=== PATIENT | female | born 1930 | race Caucasian/White ===

== ENCOUNTER 2017-09-19 20:13 | Inpatient (IN) | payer MEDICARE ==
--- NOTE | 2017-09-19 20:15 | EDM.PDOC ---
<Tod Garza - Last Filed: 09/19/17 20:15> ED HPI GENERAL MEDICAL PROBLEM - General Chief Complaint: Neuro Symptoms/Deficits Stated Complaint: [facility] Time Seen by Provider: 09/19/17 20:15 - Related Data Allergies Allergy/AdvReac Type Severity Reaction Status Date / Time No Known Allergies Allergy Verified 09/19/17 20:18 Home Meds: Home Meds Albuterol/Ipratropium [DuoNeb 3.0-0.5 MG/3 ML] 3 ml IH ASDIRECTED 09/19/17 [ History] Budesonide [Pulmicort] 0.5 mg IH BID PRN 09/19/17 [History] Famotidine [Heartburn Relief] 20 mg PO ASDIRECTED 09/19/17 [History] Course - Vital Signs Last Recorded V/S: Last Vital Signs Temp 96.6 F 09/19/17 20:14 Pulse 65 09/19/17 20:14 Resp 18 09/19/17 20:14 BP 162/89 H 09/19/17 20:14 Pulse Ox 92 L 09/19/17 20:14 - Orders/Labs/Meds Orders: Active Orders 24 hr Category Date Time Status EKG 12 Lead [EKG Documentation Completion] [RC] STAT Care 09/19/17 20:19 Active Peripheral IV Care [RC] . DIRECTED Care 09/19/17 20:20 Active Chest 1V Frontal [CR] Stat Exams 09/19/17 20:19 Taken Head wo Cont [CT] Stat Exams 09/19/17 20:35 Taken Sodium Chloride 0.9% [Saline Flush] Med 09/19/17 20:19 Active 10 ml FLUSH ASDIRECTED PRN Peripheral IV Insertion Adult [OM.PC] Stat Oth 09/19/17 20:19 Ordered Medication Orders Sodium Chloride (Saline Flush) 10 ml FLUSH ASDIRECTED PRN PRN Reason: Keep Vein Open Labs: Laboratory Tests 09/19/17 09/19/17 09/19/17 Range/Units 20:30 20:30 20:30 WBC 6.43 (3.98-10.04) K/mm3 RBC 4.39 (3.98-5.22) M/mm3 Hgb 13.0 (11.2-15.7) gm/L Hct 39.8 (34.1-44.9) % MCV 90.7 (79.4-94.8) fl MCH 29.6 (25.6-32.2) pg MCHC 32.7 (32.2-35.5) g/dl RDW Std Deviation 44.6 (36.4-46.3) fL Plt Count 196 (182-369) K/mm3 MPV 9.4 (9.4-12.3) fl Neut % (Auto) 47.3 (34.0-71.1) % Lymph % (Auto) 35.5 (19.3-51.7) % [place] % (Auto) 10.9 (4.7-12.5) % Eos % (Auto) 5.6 (0.7-5.8) Baso % (Auto) 0.5 (0.1-1.2) % Neut # (Auto) 3.05 (1.56-6.13) K/mm3 Lymph # (Auto) 2.28 (1.18-3.74) K/mm3 [place] # (Auto) 0.70 H (0.24-0.36) K/mm3 Eos # (Auto) 0.36 (0.04-0.36) K/mm3 Baso # (Auto) 0.03 (0.01-0.08) K/mm3 Sodium 143 (136-145) mEq/L Potassium 3.8 (3.5-5.1) mEq/L Chloride 107 (98-107) mEq/L Carbon Dioxide 28 (21-32) mEq/L Anion Gap 11.8 (5-15) BUN 24 H (7-18) mg/dL Creatinine 0.8 (0.55-1.02) mg/dL Est Cr Clr Drug Dosing 44.63 mL/min Estimated GFR (MDRD) > 60 (>60) mL/min BUN/Creatinine Ratio 30.0 H (14-18) Glucose 117 H (83-115) mg/dL Calcium 9.2 (8.5-10.1) mg/dL Total Bilirubin 0.4 (0.2-1.0) mg/dL AST 25 (15-37) U/L ALT 22 (14-59) U/L Alkaline Phosphatase 68 (46-116) U/L C-Reactive Protein < 0.2 (<1.0) mg/dL Total Protein 6.9 (6.4-8.2) g/dl Albumin 4.0 (3.4-5.0) g/dl Globulin 2.9 gm/dL Albumin/Globulin Ratio 1.4 (1-2) Urine Color (Yellow) Urine Appearance (Clear) Urine pH (5.0-8.0) Ur Specific [place] (1.005-1.030) Urine Protein (Negative) Urine Glucose (UA) (Negative) Urine Ketones (Negative) Urine Occult Blood (Negative) Urine Nitrite (Negative) Urine Bilirubin (Negative) Urine Urobilinogen (0.2-1.0) Ur Leukocyte Esterase (Negative) Urine RBC (0-5) /hpf Urine WBC (0-5) /hpf Ur Epithelial Cells (0-5) /hpf Urine Bacteria (FEW) /hpf Urine Mucus (FEW) /hpf 09/19/17 Range/Units 22:10 WBC (3.98-10.04) K/mm3 RBC (3.98-5.22) M/mm3 Hgb (11.2-15.7) gm/L Hct (34.1-44.9) % MCV (79.4-94.8) fl MCH (25.6-32.2) pg MCHC (32.2-35.5) g/dl RDW Std Deviation (36.4-46.3) fL Plt Count (182-369) K/mm3 MPV (9.4-12.3) fl Neut % (Auto) (34.0-71.1) % Lymph % (Auto) (19.3-51.7) % [place] % (Auto) (4.7-12.5) % Eos % (Auto) (0.7-5.8) Baso % (Auto) (0.1-1.2) % Neut # (Auto) (1.56-6.13) K/mm3 Lymph # (Auto) (1.18-3.74) K/mm3 [place] # (Auto) (0.24-0.36) K/mm3 Eos # (Auto) (0.04-0.36) K/mm3 Baso # (Auto) (0.01-0.08) K/mm3 Sodium (136-145) mEq/L Potassium (3.5-5.1) mEq/L Chloride (98-107) mEq/L Carbon Dioxide (21-32) mEq/L Anion Gap (5-15) BUN (7-18) mg/dL Creatinine (0.55-1.02) mg/dL Est Cr Clr Drug Dosing mL/min Estimated GFR (MDRD) (>60) mL/min BUN/Creatinine Ratio (14-18) Glucose (83-115) mg/dL Calcium (8.5-10.1) mg/dL Total Bilirubin (0.2-1.0) mg/dL AST (15-37) U/L ALT (14-59) U/L Alkaline Phosphatase (46-116) U/L C-Reactive Protein (<1.0) mg/dL Total Protein (6.4-8.2) g/dl Albumin (3.4-5.0) g/dl Globulin gm/dL Albumin/Globulin Ratio (1-2) Urine Color Yellow (Yellow) Urine Appearance Clear (Clear) Urine pH 6.0 (5.0-8.0) Ur Specific [place] 1.015 (1.005-1.030) Urine Protein Negative (Negative) Urine Glucose (UA) Negative (Negative) Urine Ketones Negative (Negative) Urine Occult Blood Negative (Negative) Urine Nitrite Negative (Negative) Urine Bilirubin Negative (Negative) Urine Urobilinogen 0.2 (0.2-1.0) Ur Leukocyte Esterase Negative (Negative) Urine RBC 0-5 (0-5) /hpf Urine WBC 0-5 (0-5) /hpf Ur Epithelial Cells 0-5 (0-5) /hpf Urine Bacteria Rare (FEW) /hpf Urine Mucus Not seen (FEW) /hpf Meds: Medications Generic Name Dose Route Start Last Admin Trade Name Freq PRN Reason Stop Dose Admin Sodium Chloride 10 ml 09/19/17 20:19 Saline Flush FLUSH ASDIRECTED PRN Keep Vein Open Discontinued Medications Generic Name Dose Route Start Last Admin Trade Name Freq PRN Reason Stop Dose Admin Sodium Chloride 500 mls @ 999 mls/hr 09/19/17 20:21 09/19/17 20:34 Normal Saline IV 09/19/17 20:51 999 mls/hr .BOLUS ONE Administration Departure - Departure Disposition: Refer to Observation Clinical Impression: Paranoia, Hallucinations Dementia Qualifiers: Dementia type: Alzheimer's disease Alzheimer's disease onset: unspecified onset Dementia behavioral disturbance: with behavioral disturbance Qualified Code(s): G30.9 - Alzheimer's disease, unspecified; F02.81 - Dementia in other diseases classified elsewhere with behavioral disturbance; F02.81 - Dementia in other diseases classified elsewhere with behavioral disturbance; F02.81 - Dementia in other diseases classified elsewhere with behavioral disturbance - Discharge Information Referrals: PCP,None [Primary Care Provider] - Forms: ED Department Discharge - My Orders Last 24 Hours: My Active Orders 09/19/17 20:19 EKG 12 Lead [EKG Documentation Completion] [RC] STAT Chest 1V Frontal [CR] Stat Sodium Chloride 0.9% [Saline Flush] 10 ml FLUSH ASDIRECTED PRN Peripheral IV Insertion Adult [OM.PC] Stat 09/19/17 20:20 Peripheral IV Care [RC] . DIRECTED 09/19/17 20:35 Head wo Cont [CT] Stat - Assessment/Plan Last 24 Hours: My Active Orders 09/19/17 20:19 EKG 12 Lead [EKG Documentation Completion] [RC] STAT Chest 1V Frontal [CR] Stat Sodium Chloride 0.9% [Saline Flush] 10 ml FLUSH ASDIRECTED PRN Peripheral IV Insertion Adult [OM.PC] Stat 09/19/17 20:20 Peripheral IV Care [RC] . DIRECTED 09/19/17 20:35 Head wo Cont [CT] Stat <Mohit Romo - Last Filed: 09/19/17 23:26> ED HPI GENERAL MEDICAL PROBLEM - General Source of Information: Reports: Patient, RN Notes Reviewed - History of Present Illness INITIAL COMMENTS - FREE TEXT/NARRATIVE: 87 year old female brought in by ambulance for evaluation of confusion, possible hallucinations. She lives alone, apparently called the police earlier this evening because she thought her nephew had stolen her car keys. The police arrived to find her confused, notes "all over her apartment or home warning her nephew not to take her car keys" Police did not know if she was safe to be home alone so called EMS to have her brought here to the ED. They stated that she reported "someone in her apartment earlier today", apparently hallucinating. On arrival to ED patient is in NAD, mildly confused. No chest pain or difficulty breathing, no other complaints other than not wanting to be here. ED ROS GENERAL - Review of Systems Review Of Systems: See Below (Pt is moderately confused, may or may not remember prior sx) Constitutional: Denies: Fever HEENT: Denies: Throat Pain Respiratory: Denies: Shortness of Breath, Cough Cardiovascular: Denies: Chest Pain GI/Abdominal: Denies: Abdominal Pain, Diarrhea, Vomiting Musculoskeletal: Reports: No Symptoms Skin: Reports: No Symptoms Neurological: Denies: Headache, Trouble Speaking, Difficulty Walking, Weakness ED EXAM, GENERAL - Physical Exam Exam: See Below General Appearance: Alert, No Apparent Distress Eye Exam: Bilateral Eye: PERRL Nose: Normal Inspection Throat/Mouth: Normal Inspection Head: Atraumatic. No: Facial Swelling Neck: Supple, Full Range of Motion Respiratory/Chest: No Respiratory Distress, Lungs Clear, Normal Breath Sounds. No: Rhonchi, Wheezing Cardiovascular: Regular Rate, Rhythm GI/Abdominal: Soft, Non-Tender Back Exam: Other (no bruising or swelling). No: Paraspinal Tenderness, Vertebral Tenderness Extremities: No: Pedal Edema, Leg Pain Neurological: Alert, Confused (mild to moderately confused, knows her name, where she is at, does not know the date and cannot say what town she lives in) Skin Exam: Warm, Dry, Normal Color Course - Re-Assessments/Exams Free Text/Narrative Re-Assessment/Exam: 09/19/17 23:17 Labs have all come back relatively normal. Head CT no acute findings. CXR normal. She is pleasantly confused, cooperative here in the ED. Not felt safe to go home. I did visit with her nephew who has POA. He states that she had dementia when she moved to [facility] 1 yr ago. Placed at [facility], [facility]. Her meals are provided. She has a senior employee services manager that checks on her at least once daily. However she has been getting more confused and paranoid for some time, accusing people of stealing and especially her nephew and others of stealing her money, than calling the police tonight about nephew stealing her car keys. He has already contacted adult protective services, and Alicia Lynch at [facility] to try help him evaluate need for higher level of care. She has refused medical eval. He strongly feels that she should be admitted, evaluated for higher level of care. Departure - Departure Time of Disposition: 23:23 Condition: Fair ED Communication - Discussed Case With (1) Discussed Case With (1): Admitting Provider (Dr Thomas, decision to admit at about 2300.)
[2017-09-19] MEDS ORDERED: Sodium Chloride 0.9% 10 ML Syringe FLUSH PRN (20:19)
[2017-09-19] MEDS ORDERED: Sodium Chloride 0.9% 500 ML IV ONE (20:21)
--- NOTE | 2017-09-20 00:19 | PCM.HP ---
H&P History of Present Illness - General Date of Service: 09/20/17 Admit Problem/Dx: Unable to Care Herself Source of Information: Patient, Old Records, Provider, RN Notes Reviewed History Limitations: Reports: Altered Mental Status - History of Present Illness Initial Comments - Free Text/Narative: This is an 87 yo elderly white female with past medical hx/o COPD, GERD, Gait Instability who was brought in by EMS for evaluation of confusion and possible new onset of dementia. Patient is significantly confused not able to provide pertinent medical information. She could not tell me why she is here in the hospital. However per secondary sources, patient called the police to report a stolen car barnes by her nephew. When the local police arrived she was found in front of her house holding onto a shovel, severely confused, and sometimes not able to complete a sentence. The officer spoke to the nephew and was told that he has not visited her today. Additionally, there were reports of several notes all over her house with the words "The thieves" written in it. Patient lives alone and ambulates with a wheel walker. Local police felt she would be not safe to be alone by herself and therefore she was brought into the emergency department by EMS for further evaluation. Her initial workup in emergency department shows a fairly unremarkable CBC, Chemistry and UA. Her head CT scan and chest x-ray both show no acute abnormal findings. Patient is being admitted for acute confusion and possible new onset of dementia with behavioral disturbance/paranoia. She is CPR only. back pain Pain Score (Numeric/FACES): 5 - Related Data Allergies/Adverse Reactions: Allergies Allergy/AdvReac Type Severity Reaction Status Date / Time No Known Allergies Allergy Verified 09/19/17 20:18 Home Medications: Home Meds Albuterol/Ipratropium [DuoNeb 3.0-0.5 MG/3 ML] 3 ml IH ASDIRECTED 09/19/17 [ History] Budesonide [Pulmicort] 0.5 mg IH BID PRN 09/19/17 [History] Famotidine [Heartburn Relief] 20 mg PO DAILY 09/19/17 [History] Levothyroxine [Synthroid] 50 mcg PO ACBREAKFAST 09/20/17 [History] Lisinopril [Lisinopril] 2.5 mg PO DAILY 09/20/17 [History] Montelukast [Singulair] 10 mg PO DAILY 09/20/17 [History] Past Medical History HEENT History: Reports: Hard of Hearing, Impaired Vision Other Respiratory History: patient has duoneb and pulmacort in her apartment Social & Family History - Family History Family Medical History: Noncontributory - Tobacco Use Smoking Status *Q: Former Smoker Used Tobacco, but Quit: No - Caffeine Use Caffeine Use: Reports: Coffee - Recreational Drug Use Recreational Drug Use: No H&P Review of Systems - Review of Systems: Review Of Systems: See Below General: Denies: Fever, Chills, Malaise, Weakness, Fatigue HEENT: Reports: No Symptoms Pulmonary: Denies: Shortness of Breath Cardiovascular: Denies: Chest Pain, Palpitations, Dyspnea on Exertion, Edema, Lightheadedness Gastrointestinal: Denies: Abdominal Pain, Nausea, Vomiting Genitourinary: Reports: No Symptoms Musculoskeletal: Reports: No Symptoms Skin: Denies: Cyanosis, Pallor, Diaphoresis, Rash Psychiatric: Reports: Confusion, Other (Paranoia). Denies: Depression, Anxiety , Agitation, Hallucinations, Suicidal Ideation Neurological: Reports: Difficulty Walking. Denies: Dizziness, Weakness, Gait Disturbance Hematologic/Lymphatic: Reports: No Symptoms Immunologic: Reports: No Symptoms Exam - Exam Exam: See Below - Vital Signs Vital Signs: Last Vital Signs Temp 35.9 C 09/19/17 20:14 Pulse 65 09/19/17 20:14 Resp 18 09/19/17 20:14 BP 162/89 H 09/19/17 20:14 Pulse Ox 92 L 09/19/17 20:14 Weight: 81.647 kg - Exam General: Alert, Oriented (to place only), Cooperative. No: Mild Distress HEENT: Conjunctiva Clear, Mucosa Moist & [place], Nares Patent, Normal Nasal Septum , PERRLA. No: Hearing Intact Neck: Supple, Trachea Midline Lungs: Normal Respiratory Effort, Wheezing Cardiovascular: Regular Rate, Regular Rhythm GI/Abdominal Exam: Normal Bowel Sounds, Soft, Non-Tender, No Organomegaly, No Distention, No Abnormal Bruit (Female) Exam: Deferred Rectal (Female) Exam: Deferred Back Exam: Normal Inspection, Decreased Range of Motion Extremities: Normal Inspection, Normal Range of Motion, Non-Tender, No Pedal Edema, Normal Capillary Refill, Other (ambulated with a wheel walker) Skin: Warm, Dry, Intact Neuro Extensive - Mental Status: Normal Mood/Affect, Disorientation to Person, Disorientation to Time, Nl Response to Commands. No: Memory Intact Neuro Extensive - Motor, Sensory, Reflexes: CN II-XII Intact (limited due to lack of cooperation), Abnormal Gait Psychiatric: Alert, Normal Affect, Normal Mood - Patient Data Result Diagrams: 09/20/17 06:20 09/20/17 06:20 *Q Meaningful Use (ADM) - VTE *Q VTE Criteria *Q: - Stroke *Q Stroke Criteria *Q: - AMI *Q AMI Criteria *Q: Problem List Initiated/Reviewed/Updated: Yes Orders Last 24hrs: Medication Orders Sodium Chloride (Saline Flush) 10 ml FLUSH ASDIRECTED PRN PRN Reason: Keep Vein Open Assessment/Plan Comment:: Assessment/Plan: Acute: AMS - With baseline Dementia - Head CT scan and CXR show no acute abnormal findings - EKG shows sinus rhythm - Unremarkable labs - UA is negative for UTI - Unknown severity of Dementia Dementia with Behavioral Disturbance/Paranoia - Unclear HPI - Alzheimer's vs Vascular - Lives alone - Called the stage settings painter to report nephew stole her car keys; when police arrived she was found standing outside the frond of her house with a shovel, confused and sometimes not able to complete her sentence - Officer felt she would not be safe home so EMS was called in to take her to ED for evaluation High Fall Risk - Gait instability and Behavioral Disturbance Chronic: COPD GERD Gait Instability Plan: Admit to the floor Resume Home Meds Routine AM Labs Fall Precautions Tele-psych for Paranoia/Disruptive Behavior Obtain medical records from PCP Cognitive eval by SINGLE SPINDLE SCREW MACHINE OPERATOR if this is a new onset PT/OT consult SW/CM for d/c planning Code status: CPR only (patient has underlying dementia)
[2017-09-20] MEDS ORDERED: hydrALAZINE 20 MG/ML SDV IVPUSH PRN (01:04)
[2017-09-20] MEDS ORDERED: Metoprolol Tartrate 5 MG/5 ML SDV IVPUSH PRN (01:04)
[2017-09-20] MEDS ORDERED: LORazepam 2 MG/ML SDV IVPUSH PRN (01:04)
[2017-09-20] MEDS ORDERED: Temazepam 7.5 MG Cap PO PRN (01:05)
[2017-09-20] MEDS ORDERED: Promethazine 6.25 MG in Sodium Chloride 0.9% 50 ML IV PRN (01:05)
[2017-09-20] MEDS ORDERED: Docusate Sodium 100 MG Cap PO PRN (01:05)
[2017-09-20] MEDS ORDERED: Ondansetron 4 MG/2 ML SDV IV PRN (01:05)
[2017-09-20] MEDS ORDERED: LORazepam 2 MG/ML SDV IV PRN (01:05)
[2017-09-20] MEDS ORDERED: Albuterol/Ipratropium 3.0-0.5 MG/3 ML Neb Soln NEB PRN (01:05)
[2017-09-20] MEDS ORDERED: Polyethylene Glycol 3350 Powder 17 GM Packet PO PRN (01:05)
[2017-09-20] MEDS ORDERED: Acetaminophen 325 MG Tab PO PRN (01:05)
[2017-09-20] MEDS ORDERED: Bisacodyl 5 MG Tab PO PRN (01:05)
[2017-09-20] MEDS ORDERED: HYDROmorphone 1 MG/ML Syringe IVPUSH PRN (01:05)
[2017-09-20] MEDS ORDERED: Budesonide 0.25 MG/2 ML Neb Susp INH PRN (01:09)
[2017-09-20] MEDS ORDERED: Famotidine 20 MG Tab PO PRN (01:15)
[2017-09-20] MEDS ORDERED: methylPREDNISolone Sodium Succinate 40 MG/1 ML SDV IVPUSH ONE (01:30)
[2017-09-20] MEDS: Potassium Chloride 20 MEQ Tab.ER PO SCH ×2 (01:39→06:27)
[2017-09-20] MEDS: predniSONE 20 MG Tab PO SCH (06:27)
--- NOTE | 2017-09-20 07:15 | PCM.PN ---
- General Info Date of Service: 09/20/17 Admission Dx/Problem (Free Text): Unable to Care Herself Subjective Update: Follow Up Functional Status: Reports: Pain Controlled, Tolerating Diet, Ambulating, Urinating. Denies: New Symptoms - Review of Systems General: Denies: Fever, Weakness, Fatigue, Malaise HEENT: Reports: No Symptoms Pulmonary: Denies: Shortness of Breath Cardiovascular: Denies: Chest Pain, Palpitations, Dyspnea on Exertion, Lightheadedness Gastrointestinal: Denies: Abdominal Pain, Nausea, Vomiting Genitourinary: Reports: No Symptoms Musculoskeletal: Reports: No Symptoms Skin: Denies: Cyanosis, Mottled, Pallor, Diaphoresis, Bruising, Rash Neurological: Reports: Confusion, Difficulty Walking, Gait Disturbance. Denies : Pre-Existing Deficit, Weakness Psychiatric: Denies: Depression, Anxiety, Agitation, Hallucinations, Suicidal Ideation Systems Review Comment:: No significant overnight or acute issues. She is relatively well. She has no new complaints. Her Mg is slightly low this AM. - Patient Data Vitals - Most Recent: Last Vital Signs Temp 36.4 C 09/20/17 06:25 Pulse 65 09/20/17 06:25 Resp 20 09/20/17 06:25 BP 127/57 L 09/20/17 06:25 Pulse Ox 95 09/20/17 06:25 Weight - Most Recent: 70.08 kg Med Orders - Current: Current Medications Acetaminophen (Tylenol) 650 mg PO Q4H PRN PRN Reason: Pain (Mild 1-3)/fever Hydrocodone Bitart/Acetaminophen ([place] 325-5 Mg) 1 tab PO Q4H PRN PRN Reason: Pain (moderate 4-6) Albuterol (Proventil Neb Soln) 2.5 mg NEB BID KELSEY Albuterol/Ipratropium (Duoneb 3.0-0.5 Mg/3 Ml) 3 ml NEB Q4H PRN PRN Reason: Shortness Of Breath/wheezing Bisacodyl (Dulcolax) 5 mg PO DAILY PRN PRN Reason: Constipation Budesonide (Pulmicort) 0.5 mg INH BID PRN PRN Reason: Shortness of Breath Docusate Sodium (Colace) 100 mg PO BID PRN PRN Reason: Constipation Famotidine (Pepcid) 20 mg PO ASDIRECTED PRN PRN Reason: Heartburn Hydralazine HCl (Apresoline) 10 mg IVPUSH Q4H PRN PRN Reason: Hypertension Last Admin: 09/20/17 01:38 Dose: 10 mg Hydromorphone HCl (Dilaudid) 0.25 mg IVPUSH Q2H PRN PRN Reason: Pain (severe 7-10) Promethazine HCl 6.25 mg/ (Sodium Chloride) 50.25 mls @ 100 mls/hr IV Q6H PRN PRN Reason: Nausea/Vomiting Lorazepam (Ativan) 2 mg IVPUSH Q4H PRN PRN Reason: Seizures Lorazepam (Ativan) 0.25 mg IV Q6H PRN PRN Reason: Anxiety Magnesium Sulfate (Pharmacy To Dose - Magnesium Replacement) 0 dose .XX ASDIRECTED PRN PRN Reason: RX TO WATCH MAG LEVELS Metoprolol Tartrate (Lopressor) 5 mg IVPUSH Q4H PRN PRN Reason: Tachycardia Ondansetron HCl (Zofran) 4 mg IV Q6H PRN PRN Reason: Nausea/Vomiting Polyethylene Glycol (Miralax) 17 gm PO DAILY PRN PRN Reason: Constipation Potassium Chloride (Pharmacy To Dose - Potassium Replacement) 0 dose .XX ASDIRECTED PRN PRN Reason: RX TO WATCH K LEVELS Prednisone (Prednisone) 40 mg PO WITHBREAKFAST KELSEY Last Admin: 09/20/17 06:27 Dose: 40 mg Senna/Docusate Sodium (Senna Plus) 1 tab PO BID PRN PRN Reason: Constipation Sodium Chloride (Saline Flush) 10 ml FLUSH ASDIRECTED PRN PRN Reason: Keep Vein Open Temazepam (Restoril) 7.5 mg PO BEDTIME PRN PRN Reason: Sleep Last Admin: 09/20/17 01:38 Dose: 7.5 mg Discontinued Medications Sodium Chloride (Normal Saline) 500 mls @ 999 mls/hr IV .BOLUS ONE Stop: 09/19/17 20:51 Last Admin: 09/19/17 20:34 Dose: 999 mls/hr Methylprednisolone Sodium Succinate (Solu-Medrol) 40 mg IVPUSH ONETIME ONE Stop: 09/20/17 01:31 Last Admin: 09/20/17 01:38 Dose: 40 mg Potassium Chloride (Klor-Con M20) 40 meq PO Q4H [facility] Stop: 09/20/17 06:01 Last Admin: 09/20/17 06:27 Dose: 40 meq - Exam General: Alert, Cooperative, No Acute Distress HEENT: Pupils Equal, Pupils Reactive, Mucous Membr. Moist/[place] Neck: Supple, Trachea Midline, No JVD Lungs: Normal Respiratory Effort, Decreased Breath Sounds, Wheezing (very mild ) Cardiovascular: Regular Rate, Regular Rhythm GI/Abdominal Exam: Normal Bowel Sounds, Soft, Non-Tender, No Organomegaly, No Distention, No Abnormal Bruit (Female) Exam: Deferred Back Exam: Normal Inspection, Decreased Range of Motion Extremities: Normal Inspection, Normal Range of Motion, Non-Tender, No Pedal Edema, Normal Capillary Refill Peripheral Pulses: 2+: Dorsalis Pedis (L), Dorsalis Pedis (R) Skin: Warm, Dry, Intact Neurological: No New Focal Deficit Psy/Mental Status: Alert, Normal Affect, Normal Mood. No: Anxious, Agitated, Suicidal Ideation, Homicidal Ideation, Hallucinations - Problem List Review Problem List Initiated/Reviewed/Updated: Yes - My Orders Last 24 Hours: My Active Orders 09/20/17 00:42 Code Status [Resuscitation Status] Routine 09/20/17 01:04 LORazepam [Ativan] 2 mg IVPUSH Q4H PRN Metoprolol Tartrate [Lopressor] 5 mg IVPUSH Q4H PRN hydrALAZINE [Apresoline] 10 mg IVPUSH Q4H PRN 09/20/17 01:05 Ambulate [RC] ASDIRECTED Height and Weight [RC] 04 Intake and Output [RC] 04,16 Oxygen Therapy [RC] PRN Up With Assistance [RC] ASDIRECTED VTE/DVT Education [RC] PER UNIT ROUTINE Vital Signs [RC] Q4H Consult to Case Management [CONS] Routine Consult to Physician [CONS] Routine Consult to Decorator Consultant [CONS] Routine Consult to Spiritual Care [CONS] Routine Acetaminophen [Tylenol] 650 mg PO Q4H PRN Acetaminophen/HYDROcodone [[place] 325-5 MG] 1 tab PO Q4H PRN Albuterol/Ipratropium [DuoNeb 3.0-0.5 MG/3 ML] 3 ml NEB Q4H PRN Bisacodyl [Dulcolax] 5 mg PO DAILY PRN Docusate Sodium [Colace] 100 mg PO BID PRN Docusate Sodium/Sennosides [Senna Plus] 1 tab PO BID PRN HYDROmorphone [Dilaudid] 0.25 mg IVPUSH Q2H PRN LORazepam [Ativan] 0.25 mg IV Q6H PRN Ondansetron [Zofran] 4 mg IV Q6H PRN Polyethylene Glycol 3350 [MiraLAX] 17 gm PO DAILY PRN Promethazine [Phenergan] 6.25 mg Sodium Chloride 0.9% [Normal Saline] 50 ml IV Q6H Temazepam [Restoril] 7.5 mg PO BEDTIME PRN Sequential Compression Device [OM.PC] Per Unit Routine 09/20/17 01:06 Antiembolic Devices [RC] 10,22 RT Aerosol Therapy [RC] ASDIRECTED 09/20/17 01:08 Notify Provider Consults [RC] ASDIRECTED 09/20/17 01:09 Budesonide [Pulmicort] 0.5 mg INH BID PRN 09/20/17 01:15 Famotidine [Pepcid] 20 mg PO ASDIRECTED PRN Magnesium Rep Pharmacy to Dose [Pharmacy to Dose - Magnesium Replacement] 0 dose .XX ASDIRECTED PRN Potassium Rep Pharmacy to Dose [Pharmacy to Dose - Potassium Replacement] 0 dose .XX ASDIRECTED PRN 09/20/17 06:20 BASIC METABOLIC PANEL,BMP [CHEM] AM CBC WITH AUTO DIFF [HEME] AM MAGNESIUM [CHEM] AM T4 FREE [CHEM] AM TSH [CHEM] AM 09/20/17 07:00 predniSONE 40 mg PO WITHBREAKFAST 09/20/17 09:00 Albuterol [Proventil Neb Soln] 2.5 mg NEB BID 09/20/17 Dinner Regular Diet [DIET] - Plan Plan:: Assessment/Plan: Acute: AMS - With baseline Dementia - Head CT scan and CXR show no acute abnormal findings - EKG shows sinus rhythm - Unremarkable labs - UA/UDS both negative - Unknown severity of Dementia Dementia with Behavioral Disturbance/Paranoia - Unclear HPI - Alzheimer's vs Vascular - Lives alone - Called the strategic intelligence officer to report cliff stole her car keys; when police arrived she was found standing outside the frond of her house with a shovel, confused and sometimes not able to complete her sentence - Officer felt she would not be safe home so EMS was called in to take her to ED for evaluation High Fall Risk - Gait instability and Behavioral Disturbance Chronic: COPD GERD Gait Instability Plan: She is clinically stable Routine AM Labs Fall Precautions Tele-psych for Paranoia/Disruptive Behavior Obtain medical records from PCP Cognitive eval by LAST INSERTER if this is a new onset PT/OT consult SW/CM for d/c planning Code status: CPR only (patient has underlying dementia)
[2017-09-20] MEDS ORDERED: Magnesium Sulfate/Water 2 GM in Premix Bag 1 BAG IV ONE (08:00)
[2017-09-20] MEDS ORDERED: Pneumococcal Polyvalent-23 Vaccine 0.5 ML SDV IM ONE (08:03)
--- NOTE | 2017-09-20 08:17 | CT ---
Head CT Technique: Multiple axial sections through the brain were obtained. Intravenous contrast was not utilized. Comparison: No previous intracranial imaging. Findings: Ventricles along with basal cisterns and sulci over the convexities are moderately prominent. Atherosclerotic calcifications seen within the vertebral vessels and carotid siphon. Mild diminished density is noted within portions of the periventricular white matter which is compatible with small vessel ischemic demyelination change. No evidence of intracranial hemorrhage. No midline shift or mass effect is seen. Bone window settings were reviewed which show the visualized sinuses to appear clear. No acute calvarial abnormality is appreciated. Impression: 1. Senescent change. 2. Nothing acute is appreciated on noncontrast head CT study. Diagnostic code #2 Agree with preliminary report issued by [facility] ([facility] preliminary report dictated on 09/19/17, 10:13 PM Central Time)
--- NOTE | 2017-09-20 08:17 | CR ---
Chest: Frontal view of the chest was obtained. Comparison: No prior chest x-ray. Density noted along the right cardiophrenic angle most likely due to prominent epicardial fat pad. Slight scarring also felt to be present within the right base. Lungs otherwise are clear. Bony structures are osteopenic. Atherosclerotic change noted within the thoracic aorta. Impression: 1. Findings felt to be incidental as noted above. 2. Nothing acute is suspected on frontal chest x-ray. Diagnostic code #2
[2017-09-20] MEDS ORDERED: FLU Vacc TS 2017-18 (65yr UP)/PF 180 MCG/0.5 ML Syringe IM ONE (08:30)
[2017-09-20] MEDS: Albuterol 0.083% 2.5 MG/3 ML Neb Soln NEB SCH ×2 (10:57→21:18)
[2017-09-20] MEDS: FLUoxetine 10 MG Cap PO SCH (11:35)
[2017-09-20] MEDS: Haloperidol 1 MG Tab PO SCH (21:06)
[2017-09-20] MEDS: Famotidine 20 MG Tab PO SCH (21:07)
[2017-09-21] MEDS: predniSONE 20 MG Tab PO SCH (06:28)
[2017-09-21] MEDS: Levothyroxine 50 MCG Tab PO SCH (06:28)
--- NOTE | 2017-09-21 06:48 | PCM.PN ---
- General Info Date of Service: 09/21/17 Admission Dx/Problem (Free Text): Unable to Care Herself Subjective Update: Follow Up Functional Status: Reports: Pain Controlled, Tolerating Diet, Ambulating, Urinating. Denies: New Symptoms - Review of Systems General: Denies: Fever, Weakness, Fatigue, Malaise, Chills HEENT: Reports: No Symptoms Pulmonary: Denies: Shortness of Breath Cardiovascular: Denies: Chest Pain, Palpitations, Dyspnea on Exertion, Lightheadedness Gastrointestinal: Denies: Abdominal Pain, Constipation, Decreased Appetite, Diarrhea, Difficulty Swallowing, Nausea, Vomiting Genitourinary: Reports: No Symptoms Musculoskeletal: Reports: No Symptoms Skin: Denies: Cyanosis, Mottled, Pallor, Diaphoresis, Bruising Neurological: Reports: Gait Disturbance. Denies: Confusion, Difficulty Walking , Weakness Psychiatric: Denies: Depression, Anxiety, Agitation, Hallucinations Systems Review Comment:: No significant medical issues. She is unhappy and felt we are holding her against her will. She blames her nephew for it. She reports no acute medical issues. - Patient Data Vitals - Most Recent: Last Vital Signs Temp 36.9 C 09/21/17 03:59 Pulse 61 09/21/17 03:59 Resp 19 09/21/17 03:59 BP 154/97 H 09/21/17 03:59 Pulse Ox 90 L 09/21/17 03:59 Weight - Most Recent: 69.944 kg I&O - Last 24 Hours: Intake & Output 09/20/17 09/20/17 09/21/17 14:59 22:59 06:59 Intake Total 300 1230 300 Output Total 650 100 Balance 300 580 200 Med Orders - Current: Current Medications Acetaminophen (Tylenol) 650 mg PO Q4H PRN PRN Reason: Pain (Mild 1-3)/fever Hydrocodone Bitart/Acetaminophen ([place] 325-5 Mg) 1 tab PO Q4H PRN PRN Reason: Pain (moderate 4-6) Albuterol (Proventil Neb Soln) 2.5 mg NEB BID [facility] Last Admin: 09/20/17 21:18 Dose: 2.5 mg Albuterol/Ipratropium (Duoneb 3.0-0.5 Mg/3 Ml) 3 ml NEB Q4H PRN PRN Reason: Shortness Of Breath/wheezing Bisacodyl (Dulcolax) 5 mg PO DAILY PRN PRN Reason: Constipation Budesonide (Pulmicort) 0.5 mg INH BID PRN PRN Reason: Shortness of Breath Docusate Sodium (Colace) 100 mg PO BID PRN PRN Reason: Constipation Famotidine (Pepcid) 20 mg PO BID COUNT INCLUDES THE [facility] Last Admin: 09/20/17 21:07 Dose: 20 mg Fluoxetine HCl (Prozac) 10 mg PO DAILY COUNT INCLUDES THE [facility] Last Admin: 09/20/17 11:35 Dose: 10 mg Haloperidol (Haldol) 0.5 mg PO BEDTIME COUNT INCLUDES THE [facility] Last Admin: 09/20/17 21:06 Dose: 0.5 mg Hydralazine HCl (Apresoline) 10 mg IVPUSH Q4H PRN PRN Reason: Hypertension Last Admin: 09/20/17 01:38 Dose: 10 mg Hydromorphone HCl (Dilaudid) 0.25 mg IVPUSH Q2H PRN PRN Reason: Pain (severe 7-10) Promethazine HCl 6.25 mg/ (Sodium Chloride) 50.25 mls @ 100 mls/hr IV Q6H PRN PRN Reason: Nausea/Vomiting Levothyroxine Sodium (Synthroid) 50 mcg PO ACBREAKFAST COUNT INCLUDES THE [facility] Last Admin: 09/21/17 06:28 Dose: 50 mcg Lisinopril (Prinivil) 2.5 mg PO DAILY COUNT INCLUDES THE [facility] Lorazepam (Ativan) 2 mg IVPUSH Q4H PRN PRN Reason: Seizures Lorazepam (Ativan) 0.25 mg IV Q6H PRN PRN Reason: Anxiety Magnesium Sulfate (Pharmacy To Dose - Magnesium Replacement) 0 dose .XX ASDIRECTED PRN PRN Reason: RX TO WATCH MAG LEVELS Metoprolol Tartrate (Lopressor) 5 mg IVPUSH Q4H PRN PRN Reason: Tachycardia Montelukast Sodium (Singulair) 10 mg PO DAILY COUNT INCLUDES THE [facility] Ondansetron HCl (Zofran) 4 mg IV Q6H PRN PRN Reason: Nausea/Vomiting Polyethylene Glycol (Miralax) 17 gm PO DAILY PRN PRN Reason: Constipation Potassium Chloride (Pharmacy To Dose - Potassium Replacement) 0 dose .XX ASDIRECTED PRN PRN Reason: RX TO WATCH K LEVELS Prednisone (Prednisone) 40 mg PO WITHBREAKFAST COUNT INCLUDES THE [facility] Last Admin: 09/21/17 06:28 Dose: 40 mg Senna/Docusate Sodium (Senna Plus) 1 tab PO BID PRN PRN Reason: Constipation Sodium Chloride (Saline Flush) 10 ml FLUSH ASDIRECTED PRN PRN Reason: Keep Vein Open Temazepam (Restoril) 7.5 mg PO BEDTIME PRN PRN Reason: Sleep Last Admin: 09/20/17 01:38 Dose: 7.5 mg Discontinued Medications Famotidine (Pepcid) 20 mg PO ASDIRECTED PRN PRN Reason: Heartburn Sodium Chloride (Normal Saline) 500 mls @ 999 mls/hr IV .BOLUS ONE Stop: 09/19/17 20:51 Last Admin: 09/19/17 20:34 Dose: 999 mls/hr Magnesium Sulfate 2 gm/ Premix 50 mls @ 25 mls/hr IV ONETIME ONE Stop: 09/20/17 09:59 Last Admin: 09/20/17 08:59 Dose: 25 mls/hr Influenza Virus Vaccine (Pharmacy To Dose - Influenza Vaccine) 1 each IM ONETIME ONE Stop: 09/20/17 08:04 Influenza Virus Vaccine (Fluzone High-Dose 2017-18) 180 mcg IM .ONCE ONE Stop: 09/20/17 08:31 Methylprednisolone Sodium Succinate (Solu-Medrol) 40 mg IVPUSH ONETIME ONE Stop: 09/20/17 01:31 Last Admin: 09/20/17 01:38 Dose: 40 mg Pneumococcal Polyvalent Vaccine (Pneumovax 23) 0.5 ml IM .ONCE ONE Stop: 09/20/17 08:04 Potassium Chloride (Klor-Con M20) 40 meq PO Q4H [facility] Stop: 09/20/17 06:01 Last Admin: 09/20/17 06:27 Dose: 40 meq - Exam General: Alert, Cooperative, No Acute Distress HEENT: Pupils Equal, Pupils Reactive, Mucous Membr. Moist/[place] Neck: Supple, Trachea Midline, No JVD Lungs: Clear to Auscultation, Normal Respiratory Effort Cardiovascular: Regular Rate, Regular Rhythm GI/Abdominal Exam: Normal Bowel Sounds, Soft, Non-Tender, No Organomegaly, No Distention, No Abnormal Bruit, No Mass (Female) Exam: Deferred Back Exam: Normal Inspection, Decreased Range of Motion Extremities: Normal Inspection, Non-Tender, No Pedal Edema, Normal Capillary Refill Peripheral Pulses: 2+: Dorsalis Pedis (L), Dorsalis Pedis (R) Skin: Warm, Dry, Intact Neurological: No New Focal Deficit Psy/Mental Status: Normal Affect, Anxious, Agitated, Other (angry). No: Suicidal Ideation, Homicidal Ideation, Hallucinations, Withdrawal Symptoms - Problem List Review Problem List Initiated/Reviewed/Updated: Yes - My Orders Last 24 Hours: My Active Orders 09/20/17 10:57 Consult to Speech Language Pathology [[employer]OR Evaluation and Treatment] [CONS] Routine 09/20/17 11:08 Consult to Occupational Therapy [OT Evaluation and Treatment] [CONS] Routine Consult to Physical Therapy [PT Evaluation and Treatment] [CONS] Routine 09/20/17 21:00 Famotidine [Pepcid] 20 mg PO BID 09/21/17 06:00 Levothyroxine [Synthroid] 50 mcg PO ACBREAKFAST 09/21/17 09:00 Lisinopril [Prinivil] 2.5 mg PO DAILY Montelukast [Singulair] 10 mg PO DAILY - Plan Plan:: Assessment/Plan: Acute: Late Onset Dementia with Behavioral Disturbance/Paranoia - Unclear HPI - Alzheimer's +/-Vascular - Lives alone - Called the senior j2ee developer to report nephmanda stole her car keys; when police arrived she was found standing outside the frond of her house with a shovel, confused and sometimes not able to complete her sentence - Officer felt she would not be safe home so EMS was called in to take her to ED for evaluation - Seen and evaluated by Dr. Alvarez: recommended Prozac 10mg po daily and Haldol 0.5mg po at bedtime - Agitated this morning - PRN Ativan for agitation Hypertension - Uncontrolled - On ACEI only; will increased dose to 5 mg from 2.5 daily - Add Dyazide 25-37.5 mg po daily in AM - Low dose HCTZ and ACEI now Hypomagnesemia - Mg 1.6 - 2/2 inadequate intake - Will replete and monitor High Fall Risk - Gait instability and Behavioral Disturbance Resolved: S/p AMS - With baseline Dementia - Head CT scan and CXR show no acute abnormal findings - EKG shows sinus rhythm - Unremarkable labs - UA/UDS both negative - Unknown severity of Dementia Chronic: HTN Late Onset dementia/memory loss Hypertension Chronic Renal Insufficiency GERD Hyperkalemia Hypothyroidism Recurrent UTIs Moderate-Severe COPD Gait Instability Plan: She is clinically stable Continue current treatment Routine AM Labs Fall Precautions Cut down Prednisone to [address] Alvarez following /CM for d/c planning NH Placement +/- Level 2 screening Code status: CPR only (patient has underlying dementia) LOS anticipate > 96hrs pending NH placement
[2017-09-21] MEDS: Albuterol 0.083% 2.5 MG/3 ML Neb Soln NEB SCH ×2 (10:25→21:42)
[2017-09-21] MEDS: Famotidine 20 MG Tab PO SCH ×3 (14:44→20:04)
[2017-09-21] MEDS: Lisinopril 2.5 MG Tab PO SCH ×2 (14:44→16:48)
[2017-09-21] MEDS: FLUoxetine 10 MG Cap PO SCH ×2 (14:45→16:47)
[2017-09-21] MEDS: Montelukast 10 MG Tab PO SCH ×2 (14:48→16:47)
[2017-09-21] MEDS ORDERED: Hydrochlorothiazide 25 MG Tab PO STA (19:26)
[2017-09-21] MEDS ORDERED: Hydrochlorothiazide 25 MG Tab PO SCH (19:30)
[2017-09-21] MEDS ORDERED: Lisinopril 5 MG Tab PO ONE (19:30)
[2017-09-21] MEDS: Haloperidol 1 MG Tab PO SCH (20:04)
[2017-09-22] MEDS: Lisinopril 5 MG Tab PO SCH ×2 (06:05→09:56)
[2017-09-22] MEDS: Levothyroxine 50 MCG Tab PO SCH (06:05)
[2017-09-22] MEDS: predniSONE 20 MG Tab PO SCH (06:05)
--- NOTE | 2017-09-22 06:51 | PCM.PN ---
- General Info Date of Service: 09/22/17 Admission Dx/Problem (Free Text): Unable to Care Herself Subjective Update: Follow Up Functional Status: Reports: Pain Controlled, Tolerating Diet, Ambulating, Urinating. Denies: New Symptoms - Review of Systems General: Denies: Fever, Weakness, Fatigue, Malaise, Chills HEENT: Reports: No Symptoms Pulmonary: Denies: Shortness of Breath Cardiovascular: Denies: Chest Pain, Palpitations, Dyspnea on Exertion, Lightheadedness Gastrointestinal: Denies: Abdominal Pain, Nausea, Vomiting Genitourinary: Reports: No Symptoms Musculoskeletal: Reports: No Symptoms Skin: Reports: No Symptoms Neurological: Reports: Confusion (baseline), Gait Disturbance. Denies: Difficulty Walking, Weakness Psychiatric: Denies: Depression, Anxiety, Agitation, Hallucinations Systems Review Comment:: No overnight or acute issues. She has no complaints this morning. - Patient Data Vitals - Most Recent: Last Vital Signs Temp 36.9 C 09/22/17 03:30 Pulse 85 09/22/17 03:30 Resp 24 H 09/22/17 03:30 BP 114/61 09/22/17 06:05 Pulse Ox 91 L 09/22/17 03:30 Weight - Most Recent: 69.173 kg I&O - Last 24 Hours: Intake & Output 09/21/17 09/21/17 09/22/17 14:59 22:59 06:59 Intake Total 820 550 Output Total 200 450 Balance 620 100 Med Orders - Current: Current Medications Acetaminophen (Tylenol) 650 mg PO Q4H PRN PRN Reason: Pain (Mild 1-3)/fever Last Admin: 09/21/17 19:45 Dose: 650 mg Hydrocodone Bitart/Acetaminophen ([place] 325-5 Mg) 1 tab PO Q4H PRN PRN Reason: Pain (moderate 4-6) Albuterol (Proventil Neb Soln) 2.5 mg NEB BID [facility] Last Admin: 09/21/17 21:42 Dose: Not Given Albuterol/Ipratropium (Duoneb 3.0-0.5 Mg/3 Ml) 3 ml NEB Q4H PRN PRN Reason: Shortness Of Breath/wheezing Bisacodyl (Dulcolax) 5 mg PO DAILY PRN PRN Reason: Constipation Budesonide (Pulmicort) 0.5 mg INH BID PRN PRN Reason: Shortness of Breath Docusate Sodium (Colace) 100 mg PO BID PRN PRN Reason: Constipation Last Admin: 09/21/17 16:45 Dose: 100 mg Famotidine (Pepcid) 20 mg PO BID [facility] Last Admin: 09/21/17 20:04 Dose: 20 mg Fluoxetine HCl (Prozac) 10 mg PO DAILY [facility] Last Admin: 09/21/17 16:47 Dose: 10 mg Haloperidol (Haldol) 0.5 mg PO BEDTIME [facility] Last Admin: 09/21/17 20:04 Dose: 0.5 mg Hydralazine HCl (Apresoline) 10 mg IVPUSH Q4H PRN PRN Reason: Hypertension Last Admin: 09/20/17 01:38 Dose: 10 mg Hydromorphone HCl (Dilaudid) 0.25 mg IVPUSH Q2H PRN PRN Reason: Pain (severe 7-10) Promethazine HCl 6.25 mg/ (Sodium Chloride) 50.25 mls @ 100 mls/hr IV Q6H PRN PRN Reason: Nausea/Vomiting Levothyroxine Sodium (Synthroid) 50 mcg PO ACBREAKFAST [facility] Last Admin: 09/22/17 06:05 Dose: 50 mcg Lisinopril (Prinivil) 5 mg PO DAILY [facility] Last Admin: 09/22/17 06:05 Dose: 5 mg Lorazepam (Ativan) 2 mg IVPUSH Q4H PRN PRN Reason: Seizures Lorazepam (Ativan) 0.25 mg IV Q6H PRN PRN Reason: Anxiety Magnesium Sulfate (Pharmacy To Dose - Magnesium Replacement) 0 dose .XX ASDIRECTED PRN PRN Reason: RX TO WATCH MAG LEVELS Metoprolol Tartrate (Lopressor) 5 mg IVPUSH Q4H PRN PRN Reason: Tachycardia Montelukast Sodium (Singulair) 10 mg PO DAILY [facility] Last Admin: 09/21/17 16:47 Dose: 10 mg Ondansetron HCl (Zofran) 4 mg IV Q6H PRN PRN Reason: Nausea/Vomiting Polyethylene Glycol (Miralax) 17 gm PO DAILY PRN PRN Reason: Constipation Potassium Chloride (Pharmacy To Dose - Potassium Replacement) 0 dose .XX ASDIRECTED PRN PRN Reason: RX TO WATCH K LEVELS Prednisone (Prednisone) 40 mg PO WITHBREAKFAST [facility] Last Admin: 09/22/17 06:05 Dose: 40 mg Senna/Docusate Sodium (Senna Plus) 1 tab PO BID PRN PRN Reason: Constipation Sodium Chloride (Saline Flush) 10 ml FLUSH ASDIRECTED PRN PRN Reason: Keep Vein Open Temazepam (Restoril) 7.5 mg PO BEDTIME PRN PRN Reason: Sleep Last Admin: 09/20/17 01:38 Dose: 7.5 mg Triamterene/HCTZ (Dyazide 25-37.5 Mg) 1 each PO DAILY [facility] Discontinued Medications Famotidine (Pepcid) 20 mg PO ASDIRECTED PRN PRN Reason: Heartburn Hydrochlorothiazide (Hydrochlorothiazide) 25 mg PO BEDTIME [facility] Hydrochlorothiazide (Hydrochlorothiazide) 12.5 mg PO NOW STA Stop: 09/21/17 19:27 Last Admin: 09/21/17 20:28 Dose: 12.5 mg Sodium Chloride (Normal Saline) 500 mls @ 999 mls/hr IV .BOLUS ONE Stop: 09/19/17 20:51 Last Admin: 09/19/17 20:34 Dose: 999 mls/hr Magnesium Sulfate 2 gm/ Premix 50 mls @ 25 mls/hr IV ONETIME ONE Stop: 09/20/17 09:59 Last Admin: 09/20/17 08:59 Dose: 25 mls/hr Influenza Virus Vaccine (Pharmacy To Dose - Influenza Vaccine) 1 each IM ONETIME ONE Stop: 09/20/17 08:04 Last Admin: 09/21/17 14:53 Dose: Not Given Influenza Virus Vaccine (Fluzone High-Dose ) 180 mcg IM .ONCE ONE Stop: 09/20/17 08:31 Lisinopril (Prinivil) 2.5 mg PO DAILY [facility] Last Admin: 09/21/17 16:48 Dose: 2.5 mg Lisinopril (Prinivil) 5 mg PO ONETIME ONE Stop: 09/21/17 19:31 Last Admin: 09/21/17 20:27 Dose: 5 mg Methylprednisolone Sodium Succinate (Solu-Medrol) 40 mg IVPUSH ONETIME ONE Stop: 09/20/17 01:31 Last Admin: 09/20/17 01:38 Dose: 40 mg Pneumococcal Polyvalent Vaccine (Pneumovax 23) 0.5 ml IM .ONCE ONE Stop: 09/20/17 08:04 Potassium Chloride (Klor-Con M20) 40 meq PO Q4H [facility] Stop: 09/20/17 06:01 Last Admin: 09/20/17 06:27 Dose: 40 meq - Problem List Review Problem List Initiated/Reviewed/Updated: Yes - My Orders Last 24 Hours: My Active Orders 09/21/17 06:00 Levothyroxine [Synthroid] 50 mcg PO ACBREAKFAST 09/21/17 09:00 Montelukast [Singulair] 10 mg PO DAILY 09/22/17 07:00 Lisinopril [Prinivil] 5 mg PO DAILY 09/22/17 09:00 HCTZ/Triamterene [Dyazide 25-37.5 MG] 1 each PO DAILY - Plan Plan:: Assessment/Plan: Acute: Late Onset Dementia with Behavioral Disturbance/Paranoia - Unclear HPI - Alzheimer's +/-Vascular - Lives alone - Called the retort setter to report nephew stole her car keys; when police arrived she was found standing outside the frond of her house with a shovel, confused and sometimes not able to complete her sentence - Officer felt she would not be safe home so EMS was called in to take her to ED for evaluation - Seen and evaluated by Dr. Alvarez: recommended Prozac 10mg po daily and Haldol 0.5mg po at bedtime - Agitated this morning - PRN Ativan for agitation Hypertension, IMproved - Uncontrolled - On ACEI only; will increased dose to 5 mg from 2.5 daily - Add Dyazide 25-37.5 mg po daily in AM - Low dose HCTZ and ACEI now Hypomagnesemia, likely improved - Mg 1.6 - 2/2 inadequate intake - Will replete and monitor High Fall Risk - Gait instability and Behavioral Disturbance Resolved: S/p AMS - With baseline Dementia - Head CT scan and CXR show no acute abnormal findings - EKG shows sinus rhythm - Unremarkable labs - UA/UDS both negative - Unknown severity of Dementia Chronic: HTN Late Onset dementia/memory loss Hypertension Chronic Renal Insufficiency GERD Hyperkalemia Hypothyroidism Recurrent UTIs Moderate-Severe COPD Gait Instability Plan: She remains clinically stable Continue current treatment Routine AM Labs Fall Precautions Cut down Prednisone to [address] Alvarez following SW/CM for d/c planning NH Placement +/- Level 2 screening Code status: CPR only (patient has underlying dementia) LOS anticipate > 96hrs pending NH placement
[2017-09-22] MEDS: Hydrochlorothiazide/Triamterene 25-37.5 MG Cap PO SCH (09:56)
[2017-09-22] MEDS: FLUoxetine 10 MG Cap PO SCH (09:56)
[2017-09-22] MEDS: Montelukast 10 MG Tab PO SCH (09:56)
[2017-09-22] MEDS: Famotidine 20 MG Tab PO SCH ×2 (09:56→20:10)
[2017-09-22] MEDS: Albuterol 0.083% 2.5 MG/3 ML Neb Soln NEB SCH ×2 (10:14→20:44)
[2017-09-22] MEDS ORDERED: predniSONE 20 MG Tab PO SCH (16:46)
[2017-09-22] MEDS: Haloperidol 1 MG Tab PO SCH (20:10)
[2017-09-23] MEDS: Levothyroxine 50 MCG Tab PO SCH (06:36)
--- NOTE | 2017-09-23 07:41 | PCM.PN ---
- General Info Date of Service: 09/23/17 Admission Dx/Problem (Free Text): Unable to Care Herself Subjective Update: Follow Up Functional Status: Reports: Pain Controlled, Tolerating Diet, Ambulating, Urinating - Review of Systems General: Denies: Fever, Weakness, Fatigue, Malaise, Chills HEENT: Reports: No Symptoms Pulmonary: Denies: Shortness of Breath Cardiovascular: Denies: Chest Pain Gastrointestinal: Denies: Abdominal Pain, Nausea, Vomiting Genitourinary: Reports: No Symptoms Musculoskeletal: Reports: No Symptoms Skin: Denies: Cyanosis, Mottled, Pallor, Diaphoresis Neurological: Reports: Gait Disturbance. Denies: Confusion, Pre-Existing Deficit, Difficulty Walking, Weakness Psychiatric: Denies: Depression, Anxiety, Agitation, Hallucinations Systems Review Comment:: No significant overnight or acute issues. She slept well and has no complaints this morning. Again, she wants to leave out of here. She blames here nephew why she is here. She feels like she is being held against her will. - Patient Data Vitals - Most Recent: Last Vital Signs Temp 36.6 C 09/23/17 04:52 Pulse 62 09/23/17 04:52 Resp 16 09/23/17 04:52 BP 108/72 09/23/17 04:52 Pulse Ox 92 L 09/23/17 04:52 Weight - Most Recent: 68.719 kg I&O - Last 24 Hours: Intake & Output 09/22/17 09/23/17 09/23/17 22:59 06:59 14:59 Intake Total 1540 600 Output Total 500 200 Balance 1040 400 Lab Results Last 24 Hours: Laboratory Results - last 24 hr 09/23/17 Range/Units 05:40 Sodium 140 (136-145) mEq/L Potassium 3.8 (3.5-5.1) mEq/L Chloride 105 (98-107) mEq/L Carbon Dioxide 28 (21-32) mEq/L Anion Gap 10.8 (5-15) BUN 34 H (7-18) mg/dL Creatinine 0.9 (0.55-1.02) mg/dL Est Cr Clr Drug Dosing 36.59 mL/min Estimated GFR (MDRD) 59 (>60) mL/min BUN/Creatinine Ratio 37.8 H (14-18) Glucose 92 (83-115) mg/dL Calcium 8.8 (8.5-10.1) mg/dL Magnesium 1.8 (1.8-2.4) mg/dl Med Orders - Current: Current Medications Acetaminophen (Tylenol) 650 mg PO Q4H PRN PRN Reason: Pain (Mild 1-3)/fever Last Admin: 09/21/17 19:45 Dose: 650 mg Hydrocodone Bitart/Acetaminophen ([place] 325-5 Mg) 1 tab PO Q4H PRN PRN Reason: Pain (moderate 4-6) Albuterol (Proventil Neb Soln) 2.5 mg NEB BID [facility] Last Admin: 09/22/17 20:44 Dose: 2.5 mg Albuterol/Ipratropium (Duoneb 3.0-0.5 Mg/3 Ml) 3 ml NEB Q4H PRN PRN Reason: Shortness Of Breath/wheezing Bisacodyl (Dulcolax) 5 mg PO DAILY PRN PRN Reason: Constipation Budesonide (Pulmicort) 0.5 mg INH BID PRN PRN Reason: Shortness of Breath Docusate Sodium (Colace) 100 mg PO BID PRN PRN Reason: Constipation Last Admin: 09/21/17 16:45 Dose: 100 mg Famotidine (Pepcid) 20 mg PO DAILY [facility] Fluoxetine HCl (Prozac) 10 mg PO DAILY [facility] Last Admin: 09/22/17 09:56 Dose: 10 mg Haloperidol (Haldol) 0.5 mg PO BEDTIME [facility] Last Admin: 09/22/17 20:10 Dose: 0.5 mg Hydralazine HCl (Apresoline) 10 mg IVPUSH Q4H PRN PRN Reason: Hypertension Last Admin: 09/20/17 01:38 Dose: 10 mg Hydromorphone HCl (Dilaudid) 0.25 mg IVPUSH Q2H PRN PRN Reason: Pain (severe 7-10) Promethazine HCl 6.25 mg/ (Sodium Chloride) 50.25 mls @ 100 mls/hr IV Q6H PRN PRN Reason: Nausea/Vomiting Levothyroxine Sodium (Synthroid) 50 mcg PO ACBREAKFAST [facility] Last Admin: 09/23/17 06:36 Dose: 50 mcg Lisinopril (Prinivil) 5 mg PO DAILY [facility] Last Admin: 09/22/17 09:56 Dose: 5 mg Lorazepam (Ativan) 2 mg IVPUSH Q4H PRN PRN Reason: Seizures Lorazepam (Ativan) 0.25 mg IV Q6H PRN PRN Reason: Anxiety Magnesium Sulfate (Pharmacy To Dose - Magnesium Replacement) 0 dose .XX ASDIRECTED PRN PRN Reason: RX TO WATCH MAG LEVELS Metoprolol Tartrate (Lopressor) 5 mg IVPUSH Q4H PRN PRN Reason: Tachycardia Montelukast Sodium (Singulair) 10 mg PO DAILY [facility] Last Admin: 09/22/17 09:56 Dose: 10 mg Ondansetron HCl (Zofran) 4 mg IV Q6H PRN PRN Reason: Nausea/Vomiting Polyethylene Glycol (Miralax) 17 gm PO DAILY PRN PRN Reason: Constipation Potassium Chloride (Pharmacy To Dose - Potassium Replacement) 0 dose .XX ASDIRECTED PRN PRN Reason: RX TO WATCH K LEVELS Prednisone (Prednisone) 20 mg PO WITHBREAKFAST [facility] Last Admin: 09/23/17 06:36 Dose: 20 mg Senna/Docusate Sodium (Senna Plus) 1 tab PO BID PRN PRN Reason: Constipation Sodium Chloride (Saline Flush) 10 ml FLUSH ASDIRECTED PRN PRN Reason: Keep Vein Open Temazepam (Restoril) 7.5 mg PO BEDTIME PRN PRN Reason: Sleep Last Admin: 09/20/17 01:38 Dose: 7.5 mg Triamterene/HCTZ (Dyazide 25-37.5 Mg) 1 each PO DAILY [facility] Last Admin: 09/22/17 09:56 Dose: 1 each Discontinued Medications Famotidine (Pepcid) 20 mg PO ASDIRECTED PRN PRN Reason: Heartburn Famotidine (Pepcid) 20 mg PO BID [facility] Last Admin: 09/22/17 20:10 Dose: 20 mg Hydrochlorothiazide (Hydrochlorothiazide) 25 mg PO BEDTIME [facility] Hydrochlorothiazide (Hydrochlorothiazide) 12.5 mg PO NOW STA Stop: 09/21/17 19:27 Last Admin: 09/21/17 20:28 Dose: 12.5 mg Sodium Chloride (Normal Saline) 500 mls @ 999 mls/hr IV .BOLUS ONE Stop: 09/19/17 20:51 Last Admin: 09/19/17 20:34 Dose: 999 mls/hr Magnesium Sulfate 2 gm/ Premix 50 mls @ 25 mls/hr IV ONETIME ONE Stop: 09/20/17 09:59 Last Admin: 09/20/17 08:59 Dose: 25 mls/hr Influenza Virus Vaccine (Pharmacy To Dose - Influenza Vaccine) 1 each IM ONETIME ONE Stop: 09/20/17 08:04 Last Admin: 09/21/17 14:53 Dose: Not Given Influenza Virus Vaccine (Fluzone High-Dose ) 180 mcg IM .ONCE ONE Stop: 09/20/17 08:31 Lisinopril (Prinivil) 2.5 mg PO DAILY [facility] Last Admin: 09/21/17 16:48 Dose: 2.5 mg Lisinopril (Prinivil) 5 mg PO ONETIME ONE Stop: 09/21/17 19:31 Last Admin: 09/21/17 20:27 Dose: 5 mg Methylprednisolone Sodium Succinate (Solu-Medrol) 40 mg IVPUSH ONETIME ONE Stop: 09/20/17 01:31 Last Admin: 09/20/17 01:38 Dose: 40 mg Pneumococcal Polyvalent Vaccine (Pneumovax 23) 0.5 ml IM .ONCE ONE Stop: 09/20/17 08:04 Potassium Chloride (Klor-Con M20) 40 meq PO Q4H [facility] Stop: 09/20/17 06:01 Last Admin: 09/20/17 06:27 Dose: 40 meq Prednisone (Prednisone) 40 mg PO WITHBREAKFAST [facility] Last Admin: 09/22/17 06:05 Dose: 40 mg - Exam General: Alert, Cooperative, No Acute Distress HEENT: Pupils Equal, Pupils Reactive, EOMI, Mucous Membr. Moist/[place] Neck: Supple, Trachea Midline, No JVD Lungs: Clear to Auscultation, Normal Respiratory Effort Cardiovascular: Regular Rate, Regular Rhythm GI/Abdominal Exam: Normal Bowel Sounds, Soft, Non-Tender, No Organomegaly, No Distention, No Abnormal Bruit (Female) Exam: Deferred Back Exam: Normal Inspection, Decreased Range of Motion Extremities: Normal Inspection, Normal Range of Motion, Non-Tender, No Pedal Edema, Normal Capillary Refill Peripheral Pulses: 2+: Dorsalis Pedis (L), Dorsalis Pedis (R) Skin: Warm, Dry, Intact Neurological: No New Focal Deficit Psy/Mental Status: Alert, Normal Affect, Normal Mood - Problem List Review Problem List Initiated/Reviewed/Updated: Yes - My Orders Last 24 Hours: My Active Orders 09/22/17 07:00 Lisinopril [Prinivil] 5 mg PO DAILY 09/22/17 09:00 HCTZ/Triamterene [Dyazide 25-37.5 MG] 1 each PO DAILY 09/22/17 16:46 predniSONE 20 mg PO WITHBREAKFAST 09/23/17 09:00 Famotidine [Pepcid] 20 mg PO DAILY - Plan Plan:: Assessment/Plan: Acute: Late Onset Dementia with Behavioral Disturbance/Paranoia - Unclear HPI - Alzheimer's +/-Vascular - Lives alone - Called the manager coding to report nephmanda stole her car keys; when police arrived she was found standing outside the frond of her house with a shovel, confused and sometimes not able to complete her sentence - Officer felt she would not be safe home so EMS was called in to take her to ED for evaluation - Seen and evaluated by Dr. Alvarez: recommended Prozac 10mg po daily and Haldol 0.5mg po at bedtime - Agitated this morning - PRN Ativan for agitation Hypertension - Still uncontrolled - ACEI 5 mg po daily and Dyazide 25-37.5 mg po daily - PRN Hydralazine High Fall Risk - Gait instability and Behavioral Disturbance MDD - On Prozac 10 mg po daily - Dr. Alvarez following Resolved: S/p AMS - With baseline Dementia - Head CT scan and CXR show no acute abnormal findings - EKG shows sinus rhythm - Unremarkable labs - UA/UDS both negative - Unknown severity of Dementia S/p Hypomagnesemia - Mg 1.6--> now 1.8 - 2/2 inadequate intake - Will replete and monitor Chronic: HTN Late Onset dementia/memory loss Hypertension Chronic Renal Insufficiency GERD Hyperkalemia Hypothyroidism Recurrent UTIs Moderate-Severe COPD Gait Instability Plan: She remains clinically stable Continue current treatment Routine AM Labs Fall Precautions Dr. Alvarez following SW/CM for d/c planning NH Placement +/- Level 2 screening Code status: CPR only (patient has underlying dementia) LOS > 96 hrs pending NH placement
[2017-09-23] MEDS: Montelukast 10 MG Tab PO SCH (08:20)
[2017-09-23] MEDS: Lisinopril 5 MG Tab PO SCH (08:20)
[2017-09-23] MEDS: Hydrochlorothiazide/Triamterene 25-37.5 MG Cap PO SCH (08:20)
[2017-09-23] MEDS: FLUoxetine 10 MG Cap PO SCH (08:20)
[2017-09-23] MEDS: Famotidine 20 MG Tab PO SCH (08:20)
[2017-09-23] MEDS: Albuterol 0.083% 2.5 MG/3 ML Neb Soln NEB SCH ×2 (09:22→20:20)
--- NOTE | 2017-09-23 10:57 | CONS ---
CONSULTING PHYSICIAN: Albert Alvarez MD DATE OF CONSULTATION: 09/20/2017 IDENTIFICATION: The patient is an 87-year-old female who is admitted to the Med/Surg unit at [facility] on 09/19/2017. She is seen for psychiatric consultation. CHIEF COMPLAINT: "I forget. I was upset." HISTORY OF PRESENT ILLNESS: The patient is an 87-year-old female who was initially brought to the ER by police on September 19, 2017, after she had called the police herself because she has been concerned that her nephew has stolen her car. Evidently when police came to the patient's residence, they were concerned that the patient was confused and not doing well from medical standpoint, so they brought her to the ER, and upon further evaluation in the ER, there was concern that the patient might have dementia and paranoia in addition to the confusion and so she was admitted for further workup to the Med/Surg Unit. Her nephew has been in contact with the police and hospital staff and is reporting that he cares for the patient and that she has been in his mind becoming increasingly confused and paranoid, and he has wanted to get in through structured living situation, but the patient has been ambivalent about moving from her place of residence. On interview, the patient does state that she does not "like living alone" and endorses feelings of loneliness. She does become tearful and she states that she gets sad "living alone all the time, looking at the 4 nguyễn." She states that she is "not very happy" at this point and states, "I lost my and my daughter" and she is in tears when she is reporting these facts. Evidently, her " many years ago and her daughter was killed in an accident when she was 15 years of age." The patient states that she has never taken medications for depression, but at this point in time, she would be willing to try something if that would help her with her mood and also . She states she has been having problems with her memory, and when asked, she is able to state the days of the week and the months, but she is not certain what year it is. She is also not aware of her date of , but she does know how old she is. She also notes what city she is in but she does again endorse increased forgetfulness. She states she has had suicidal thoughts in the past, but is denying any suicidality at this point in time, not reporting any homicidal ideation or any psychotic symptoms. There is no report of illicit substance use or excessive alcohol use complicating the clinical picture. MEDICATIONS: At the time of presentation, the patient denying and staff has no medication list on hands for collateral information. ALLERGIES: No known drug allergies. PAST MEDICAL HISTORY: The patient is denying. REVIEW OF SYSTEMS: Negative at this point in time for acute difficulties or complications concerning the patient's GI, , pulmonary, cardiac, endocrine, blood, immune, skin, musculoskeletal systems. FAMILY, PSYCHIATRIC, AND CD HISTORY: The patient denies past psychiatric and CD history, negative per the patient report. SOCIAL HISTORY: The patient was born in [place], [place] and raised in [place], [place]. 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 She had a daughter, but her daughter is . She has a nephew who cares for her, and the patient lives alone in [place], [place] at this point in time. MENTAL STATUS EXAM: The patient is an 87-year-old tearful white female in no apparent distress. Speech is of regular rate and rhythm. The patient is cognitively oriented x2 to person and place, but not to date or year. Psychomotor activity is within normal limits. There is no abnormal motor movements or tics observed. Gait and station are not observed. This patient is in the bed at the time of the interview. Mood is depressed. Affect is consistent with stated mood. Cooperative but tearful, and the patient is hard of hearing, so the interview is facilitated with the assistance of the patient's nurse. The patient endorses suicidal ideation in the past, but none at the moment, reporting no homicidal ideation or acute psychotic symptoms. Thought processes are significant for racing thoughts, ruminations, and forgetfulness. There are no manic symptoms or loose associations evident. Judgment and insight appear impaired secondary to the patient's cognitive deficits. Motivation for help appears fair to good. VITALS: 124/79, 66, 16, 98.6 degrees. IMPRESSION: Romulus I: 1. Major depressive disorder, F32.3. 2. Rule out pseudo dementia secondary to the patient's depression. 3. Rule out dementia, not otherwise specified, F03.90. 4. Rule out psychosis, not otherwise specified with prominent paranoid features. Romulus II: None. Romulus III: No known active problems. Romulus IV: Severe. Romulus V: 55. PLAN: 1. Begin trial of Prozac 10 mg q.a.m. to help improve the patient's mood. 2. Would consider beginning a trial of Haldol 0.5 mg at bedtime to help the patient is manifesting paranoia or having excessive worries and racing thoughts. 3. We will recommend an OT consult to assess the patient for activities of daily living to see if she is able to be discharged back to her place of residence once she is deemed medically stable. 4. Recommend pastoral guidance while the patient is on the unit. 5. The patient is unable to be discharged back to her place of residence due to ongoing memory deficits depending on OT results would recommend the patient be placed in a structured living situation to help further care for the patient as she stabilizes both from a medical and psychiatric standpoint. 6. We will continue follow up with the patient on an as-needed basis while she remains on inpatient medical unit. 7. We will follow up with the patient sooner if any complications in the interim. 8. Crisis plan is in place. WENDY /[id number]
[2017-09-23] MEDS: Haloperidol 1 MG Tab PO SCH (21:07)
[2017-09-23] MEDS: Acetaminophen/HYDROcodone 325-5 MG Tab PO PRN (21:08)
[2017-09-24] MEDS: Levothyroxine 50 MCG Tab PO SCH (05:44)
--- NOTE | 2017-09-24 07:17 | PCM.PN ---
- General Info Date of Service: 09/24/17 Admission Dx/Problem (Free Text): Unable to Care Herself Subjective Update: Follow Up Functional Status: Reports: Pain Controlled, Tolerating Diet, Ambulating, Urinating. Denies: New Symptoms - Patient Data Vitals - Most Recent: Last Vital Signs Temp 36.3 C 09/24/17 05:37 Pulse 61 09/24/17 05:37 Resp 26 H 09/24/17 05:37 BP 123/83 09/24/17 05:37 Pulse Ox 93 L 09/24/17 05:37 Weight - Most Recent: 68.266 kg I&O - Last 24 Hours: Intake & Output 09/23/17 09/24/17 09/24/17 22:59 06:59 14:59 Intake Total 720 250 Balance 720 250 Med Orders - Current: Current Medications Acetaminophen (Tylenol) 650 mg PO Q4H PRN PRN Reason: Pain (Mild 1-3)/fever Last Admin: 09/21/17 19:45 Dose: 650 mg Hydrocodone Bitart/Acetaminophen ([place] 325-5 Mg) 1 tab PO Q4H PRN PRN Reason: Pain (moderate 4-6) Last Admin: 09/23/17 21:08 Dose: 1 tab Albuterol (Proventil Neb Soln) 2.5 mg NEB BID [facility] Last Admin: 09/23/17 20:20 Dose: 2.5 mg Albuterol/Ipratropium (Duoneb 3.0-0.5 Mg/3 Ml) 3 ml NEB Q4H PRN PRN Reason: Shortness Of Breath/wheezing Bisacodyl (Dulcolax) 5 mg PO DAILY PRN PRN Reason: Constipation Budesonide (Pulmicort) 0.5 mg INH BID PRN PRN Reason: Shortness of Breath Docusate Sodium (Colace) 100 mg PO BID PRN PRN Reason: Constipation Last Admin: 09/21/17 16:45 Dose: 100 mg Famotidine (Pepcid) 20 mg PO DAILY [facility] Last Admin: 09/23/17 08:20 Dose: 20 mg Fluoxetine HCl (Prozac) 10 mg PO DAILY [facility] Last Admin: 09/23/17 08:20 Dose: 10 mg Haloperidol (Haldol) 0.5 mg PO BEDTIME [facility] Last Admin: 09/23/17 21:07 Dose: 0.5 mg Hydralazine HCl (Apresoline) 10 mg IVPUSH Q4H PRN PRN Reason: Hypertension Last Admin: 09/20/17 01:38 Dose: 10 mg Hydromorphone HCl (Dilaudid) 0.25 mg IVPUSH Q2H PRN PRN Reason: Pain (severe 7-10) Promethazine HCl 6.25 mg/ (Sodium Chloride) 50.25 mls @ 100 mls/hr IV Q6H PRN PRN Reason: Nausea/Vomiting Levothyroxine Sodium (Synthroid) 50 mcg PO ACBREAKFAST [facility] Last Admin: 09/24/17 05:44 Dose: 50 mcg Lisinopril (Prinivil) 5 mg PO DAILY [facility] Last Admin: 09/23/17 08:20 Dose: 5 mg Lorazepam (Ativan) 2 mg IVPUSH Q4H PRN PRN Reason: Seizures Lorazepam (Ativan) 0.25 mg IV Q6H PRN PRN Reason: Anxiety Magnesium Sulfate (Pharmacy To Dose - Magnesium Replacement) 0 dose .XX ASDIRECTED PRN PRN Reason: RX TO WATCH MAG LEVELS Metoprolol Tartrate (Lopressor) 5 mg IVPUSH Q4H PRN PRN Reason: Tachycardia Montelukast Sodium (Singulair) 10 mg PO DAILY [facility] Last Admin: 09/23/17 08:20 Dose: 10 mg Ondansetron HCl (Zofran) 4 mg IV Q6H PRN PRN Reason: Nausea/Vomiting Polyethylene Glycol (Miralax) 17 gm PO DAILY PRN PRN Reason: Constipation Potassium Chloride (Pharmacy To Dose - Potassium Replacement) 0 dose .XX ASDIRECTED PRN PRN Reason: RX TO WATCH K LEVELS Senna/Docusate Sodium (Senna Plus) 1 tab PO BID PRN PRN Reason: Constipation Sodium Chloride (Saline Flush) 10 ml FLUSH ASDIRECTED PRN PRN Reason: Keep Vein Open Temazepam (Restoril) 7.5 mg PO BEDTIME PRN PRN Reason: Sleep Last Admin: 09/20/17 01:38 Dose: 7.5 mg Triamterene/HCTZ (Dyazide 25-37.5 Mg) 1 each PO DAILY [facility] Last Admin: 09/23/17 08:20 Dose: 1 each Discontinued Medications Famotidine (Pepcid) 20 mg PO ASDIRECTED PRN PRN Reason: Heartburn Famotidine (Pepcid) 20 mg PO BID [facility] Last Admin: 09/22/17 20:10 Dose: 20 mg Hydrochlorothiazide (Hydrochlorothiazide) 25 mg PO BEDTIME [facility] Hydrochlorothiazide (Hydrochlorothiazide) 12.5 mg PO NOW STA Stop: 09/21/17 19:27 Last Admin: 09/21/17 20:28 Dose: 12.5 mg Sodium Chloride (Normal Saline) 500 mls @ 999 mls/hr IV .BOLUS ONE Stop: 09/19/17 20:51 Last Admin: 09/19/17 20:34 Dose: 999 mls/hr Magnesium Sulfate 2 gm/ Premix 50 mls @ 25 mls/hr IV ONETIME ONE Stop: 09/20/17 09:59 Last Admin: 09/20/17 08:59 Dose: 25 mls/hr Influenza Virus Vaccine (Pharmacy To Dose - Influenza Vaccine) 1 each IM ONETIME ONE Stop: 09/20/17 08:04 Last Admin: 09/21/17 14:53 Dose: Not Given Influenza Virus Vaccine (Fluzone High-Dose ) 180 mcg IM .ONCE ONE Stop: 09/20/17 08:31 Lisinopril (Prinivil) 2.5 mg PO DAILY [facility] Last Admin: 09/21/17 16:48 Dose: 2.5 mg Lisinopril (Prinivil) 5 mg PO ONETIME ONE Stop: 09/21/17 19:31 Last Admin: 09/21/17 20:27 Dose: 5 mg Methylprednisolone Sodium Succinate (Solu-Medrol) 40 mg IVPUSH ONETIME ONE Stop: 09/20/17 01:31 Last Admin: 09/20/17 01:38 Dose: 40 mg Pneumococcal Polyvalent Vaccine (Pneumovax 23) 0.5 ml IM .ONCE ONE Stop: 09/20/17 08:04 Potassium Chloride (Klor-Con M20) 40 meq PO Q4H [facility] Stop: 09/20/17 06:01 Last Admin: 09/20/17 06:27 Dose: 40 meq Prednisone (Prednisone) 40 mg PO WITHBREAKFAST [facility] Last Admin: 09/22/17 06:05 Dose: 40 mg Prednisone (Prednisone) 20 mg PO WITHBREAKFAST [facility] Last Admin: 09/23/17 06:36 Dose: 20 mg - My Orders Last 24 Hours: My Active Orders 09/23/17 09:00 Famotidine [Pepcid] 20 mg PO DAILY - Plan Plan:: Assessment/Plan: Acute: Late Onset Dementia with Behavioral Disturbance/Paranoia - Unclear HPI - Alzheimer's +/-Vascular - Lives alone - Called the clinical allergist to report nephew stole her car keys; when police arrived she was found standing outside the frond of her house with a shovel, confused and sometimes not able to complete her sentence - Officer felt she would not be safe home so EMS was called in to take her to ED for evaluation - Seen and evaluated by Dr. Alvarez: recommended Prozac 10mg po daily and Haldol 0.5mg po at bedtime - Agitated this morning - PRN Ativan for agitation Hypertension - Still uncontrolled - ACEI 5 mg po daily and Dyazide 25-37.5 mg po daily - PRN Hydralazine High Fall Risk - Gait instability and Behavioral Disturbance MDD - On Prozac 10 mg po daily - Dr. Alvarez following Resolved: S/p AMS - With baseline Dementia - Head CT scan and CXR show no acute abnormal findings - EKG shows sinus rhythm - Unremarkable labs - UA/UDS both negative - Unknown severity of Dementia S/p Hypomagnesemia - Mg 1.6--> now 1.8 - 2/2 inadequate intake - Will replete and monitor Chronic: HTN Late Onset dementia/memory loss Hypertension Chronic Renal Insufficiency GERD Hyperkalemia Hypothyroidism Recurrent UTIs Moderate-Severe COPD Gait Instability Plan: She remains clinically stable Continue current treatment Routine AM Labs Fall Precautions Dr. Alvarez following SW/CM for d/c planning NH Placement +/- Level 2 screening Code status: CPR only (patient has underlying dementia) LOS > 96 hrs pending NH placement
[2017-09-24] MEDS ORDERED: HYDROmorphone 0.5 MG/0.5 ML SYRINGE IVPUSH PRN (07:38)
[2017-09-24] MEDS: Albuterol 0.083% 2.5 MG/3 ML Neb Soln NEB SCH (08:37)
[2017-09-24] MEDS: Famotidine 20 MG Tab PO SCH (08:43)
[2017-09-24] MEDS: Hydrochlorothiazide/Triamterene 25-37.5 MG Cap PO SCH (08:43)
[2017-09-24] MEDS: Montelukast 10 MG Tab PO SCH (08:43)
[2017-09-24] MEDS: Lisinopril 5 MG Tab PO SCH (08:43)
[2017-09-24] MEDS: FLUoxetine 10 MG Cap PO SCH (08:47)
[2017-09-24] MEDS: Acetaminophen/HYDROcodone 325-5 MG Tab PO PRN (10:06)
--- NOTE | 2017-09-24 11:58 | PCM.DCSUM1 ---
Discharge Summary - Hospital Course Brief History: This is an 87 yo elderly white female with past medical hx/o COPD , GERD, Gait Instability who was brought in by EMS for evaluation of confusion and possible new onset of dementia. Patient is significantly confused not able to provide pertinent medical information. She could not tell me why she is here in the hospital. - Discharge Data Discharge Date: 09/24/17 Discharge Disposition: DC/Tfer to [facility] Condition: Good - Discharge Diagnosis/Problem(s) (1) MDD (major depressive disorder) SNOMED Code(s): 789100370 ICD Code: F32.9 - MAJOR DEPRESSIVE DISORDER, SINGLE EPISODE, UNSPECIFIED Status: Acute Qualifiers: Psychotic features: with psychotic features (2) Dementia SNOMED Code(s): 95975426 ICD Code: F03.90 - UNSPECIFIED DEMENTIA WITHOUT BEHAVIORAL DISTURBANCE Status: Acute Qualifiers: Dementia type: Alzheimer's disease Alzheimer's disease onset: unspecified onset Dementia behavioral disturbance: with behavioral disturbance Qualified Code(s): G30.9 - Alzheimer's disease, unspecified; F02.81 - Dementia in other diseases classified elsewhere with behavioral disturbance; F02.81 - Dementia in other diseases classified elsewhere with behavioral disturbance; F02.81 - Dementia in other diseases classified elsewhere with behavioral disturbance (3) Hallucinations SNOMED Code(s): 6609529 ICD Code: R44.3 - HALLUCINATIONS, UNSPECIFIED Status: Acute (4) Paranoia SNOMED Code(s): 517008553 ICD Code: F22 - DELUSIONAL DISORDERS Status: Acute - Patient Summary/Data Consults: Consultations 09/20/17 10:57 Consult to Speech Language Pathology [SKIVER SOCK LININGS Evaluation and Treatment] [CONS] Routine 09/20/17 11:08 Consult to Occupational Therapy [OT Evaluation and Treatment] [CONS] Routine Consult to Physical Therapy [PT Evaluation and Treatment] [CONS] Routine - Patient Instructions Diet: Usual Diet as Tolerated Activity: As Tolerated Driving: Do Not Drive Showering/Bathing: May Shower Notify Provider of: Fever, Increased Pain, Nausea and/or Vomiting Other/Special Instructions: - Please take all new medications as directed. - Continue all home medications. - Resume routine home acitivities as tolerated. - Call or follow up with your for any questions or concerns after discharge. - Follow up with your PCP in 1-2 week (s) - Discharge Plan Prescriptions/Med Rec: FLUoxetine [PROzac] 10 mg PO DAILY #30 cap Haloperidol [Haldol] 0.5 mg PO BEDTIME #30 tablet Home Medications: Home Meds Albuterol/Ipratropium [DuoNeb 3.0-0.5 MG/3 ML] 3 ml IH ASDIRECTED 09/19/17 [ History] Budesonide [Pulmicort] 0.5 mg IH BID PRN 09/19/17 [History] Famotidine [Heartburn Relief] 20 mg PO DAILY 09/19/17 [History] Levothyroxine [Synthroid] 50 mcg PO ACBREAKFAST 09/20/17 [History] Lisinopril 2.5 mg PO DAILY 09/20/17 [History] Montelukast [Singulair] 10 mg PO DAILY 09/20/17 [History] FLUoxetine [PROzac] 10 mg PO DAILY #30 cap 09/24/17 [Rx] Haloperidol [Haldol] 0.5 mg PO BEDTIME #30 tablet 09/24/17 [Rx] Referrals: PCP,None [Ordering Only Provider] - - General Info Date of Service: 09/24/17 Admission Dx/Problem (Free Text: Dementia with Disruptive Behavior Subjective Update: Follow Up Functional Status: Reports: Pain Controlled, Tolerating Diet, Ambulating, Urinating - Review of Systems General: Denies: Fever, Weakness, Fatigue, Malaise, Chills HEENT: Reports: No Symptoms Pulmonary: Denies: Shortness of Breath Cardiovascular: Denies: Chest Pain Gastrointestinal: Denies: Abdominal Pain, Nausea, Vomiting Genitourinary: Reports: No Symptoms Musculoskeletal: Reports: No Symptoms Skin: Reports: Cyanosis Neurological: Reports: Confusion (baseline dementia), Gait Disturbance. Denies : Difficulty Walking, Weakness Psychiatric: Reports: Hallucinations. Denies: Depression, Anxiety, Agitation Systems Review Comment: No overnight or acute issues. She is doing relatively well. She has no medical complaints. She really wants to go home. - Patient Data Vitals - Most Recent: Last Vital Signs Temp 36.6 C 09/24/17 08:47 Pulse 62 09/24/17 08:47 Resp 26 H 09/24/17 05:37 BP 108/62 09/24/17 08:47 Pulse Ox 90 L 03/20/18 08:47 Weight - Most Recent: 68.266 kg I&O - Last 24 hours: Intake & Output 09/23/17 09/24/17 09/24/17 22:59 06:59 14:59 Intake Total 720 250 300 Balance 720 250 300 Med Orders - Current: Current Medications Acetaminophen (Tylenol) 650 mg PO Q4H PRN PRN Reason: Pain (Mild 1-3)/fever Last Admin: 09/21/17 19:45 Dose: 650 mg Hydrocodone Bitart/Acetaminophen ([place] 325-5 Mg) 1 tab PO Q4H PRN PRN Reason: Pain (moderate 4-6) Last Admin: 09/24/17 10:06 Dose: 1 tab Albuterol (Proventil Neb Soln) 2.5 mg NEB BID [facility] [place] Last Admin: 09/24/17 08:37 Dose: 2.5 mg Albuterol/Ipratropium (Duoneb 3.0-0.5 Mg/3 Ml) 3 ml NEB Q4H PRN PRN Reason: Shortness Of Breath/wheezing Bisacodyl (Dulcolax) 5 mg PO DAILY PRN PRN Reason: Constipation Budesonide (Pulmicort) 0.5 mg INH BID PRN PRN Reason: Shortness of Breath Docusate Sodium (Colace) 100 mg PO BID PRN PRN Reason: Constipation Last Admin: 09/21/17 16:45 Dose: 100 mg Famotidine (Pepcid) 20 mg PO DAILY [facility] [place] Last Admin: 09/24/17 08:43 Dose: 20 mg Fluoxetine HCl (Prozac) 10 mg PO DAILY [facility] [place] Last Admin: 09/24/17 08:47 Dose: 10 mg Haloperidol (Haldol) 0.5 mg PO BEDTIME [facility] [place] Last Admin: 09/23/17 21:07 Dose: 0.5 mg Hydralazine HCl (Apresoline) 10 mg IVPUSH Q4H PRN PRN Reason: Hypertension Last Admin: 09/20/17 01:38 Dose: 10 mg Hydromorphone HCl (Dilaudid) 0.25 mg IVPUSH Q2H PRN PRN Reason: Pain (severe 7-10) Promethazine HCl 6.25 mg/ (Sodium Chloride) 50.25 mls @ 100 mls/hr IV Q6H PRN PRN Reason: Nausea/Vomiting Levothyroxine Sodium (Synthroid) 50 mcg PO ACBREAKFAST [facility] [place] Last Admin: 09/24/17 05:44 Dose: 50 mcg Lisinopril (Prinivil) 5 mg PO DAILY [facility] [place] Last Admin: 09/24/17 08:43 Dose: 5 mg Lorazepam (Ativan) 2 mg IVPUSH Q4H PRN PRN Reason: Seizures Lorazepam (Ativan) 0.25 mg IV Q6H PRN PRN Reason: Anxiety Magnesium Sulfate (Pharmacy To Dose - Magnesium Replacement) 0 dose .XX ASDIRECTED PRN PRN Reason: RX TO WATCH MAG LEVELS Metoprolol Tartrate (Lopressor) 5 mg IVPUSH Q4H PRN PRN Reason: Tachycardia Montelukast Sodium (Singulair) 10 mg PO DAILY [facility] [place] Last Admin: 09/24/17 08:43 Dose: 10 mg Ondansetron HCl (Zofran) 4 mg IV Q6H PRN PRN Reason: Nausea/Vomiting Polyethylene Glycol (Miralax) 17 gm PO DAILY PRN PRN Reason: Constipation Potassium Chloride (Pharmacy To Dose - Potassium Replacement) 0 dose .XX ASDIRECTED PRN PRN Reason: RX TO WATCH K LEVELS Senna/Docusate Sodium (Senna Plus) 1 tab PO BID PRN PRN Reason: Constipation Sodium Chloride (Saline Flush) 10 ml FLUSH ASDIRECTED PRN PRN Reason: Keep Vein Open Temazepam (Restoril) 7.5 mg PO BEDTIME PRN PRN Reason: Sleep Last Admin: 09/20/17 01:38 Dose: 7.5 mg Triamterene/HCTZ (Dyazide 25-37.5 Mg) 1 each PO DAILY [facility] [place] Last Admin: 09/24/17 08:43 Dose: 1 each Discontinued Medications Famotidine (Pepcid) 20 mg PO ASDIRECTED PRN PRN Reason: Heartburn Famotidine (Pepcid) 20 mg PO BID [facility] [place] Last Admin: 09/22/17 20:10 Dose: 20 mg Hydrochlorothiazide (Hydrochlorothiazide) 25 mg PO BEDTIME [facility] [place] Hydrochlorothiazide (Hydrochlorothiazide) 12.5 mg PO NOW STA Stop: 09/21/17 19:27 Last Admin: 09/21/17 20:28 Dose: 12.5 mg Hydromorphone HCl (Dilaudid) 0.25 mg IVPUSH Q2H PRN PRN Reason: Pain (severe 7-10) Sodium Chloride (Normal Saline) 500 mls @ 999 mls/hr IV .BOLUS ONE Stop: 09/19/17 20:51 Last Admin: 09/19/17 20:34 Dose: 999 mls/hr Magnesium Sulfate 2 gm/ Premix 50 mls @ 25 mls/hr IV ONETIME ONE Stop: 09/20/17 09:59 Last Admin: 09/20/17 08:59 Dose: 25 mls/hr Influenza Virus Vaccine (Pharmacy To Dose - Influenza Vaccine) 1 each IM ONETIME ONE Stop: 09/20/17 08:04 Last Admin: 09/21/17 14:53 Dose: Not Given Influenza Virus Vaccine (Fluzone High-Dose ) 180 mcg IM .ONCE ONE Stop: 09/20/17 08:31 Lisinopril (Prinivil) 2.5 mg PO DAILY [facility] Last Admin: 09/21/17 16:48 Dose: 2.5 mg Lisinopril (Prinivil) 5 mg PO ONETIME ONE Stop: 09/21/17 19:31 Last Admin: 09/21/17 20:27 Dose: 5 mg Methylprednisolone Sodium Succinate (Solu-Medrol) 40 mg IVPUSH ONETIME ONE Stop: 09/20/17 01:31 Last Admin: 09/20/17 01:38 Dose: 40 mg Pneumococcal Polyvalent Vaccine (Pneumovax 23) 0.5 ml IM .ONCE ONE Stop: 09/20/17 08:04 Potassium Chloride (Klor-Con M20) 40 meq PO Q4H [facility] Stop: 09/20/17 06:01 Last Admin: 09/20/17 06:27 Dose: 40 meq Prednisone (Prednisone) 40 mg PO WITHBREAKFAST [facility] Last Admin: 09/22/17 06:05 Dose: 40 mg Prednisone (Prednisone) 20 mg PO WITHBREAKFAST [facility] Last Admin: 09/23/17 06:36 Dose: 20 mg - Exam General: Reports: Alert, Oriented, Cooperative, No Acute Distress HEENT: Reports: Pupils Equal, Pupils Reactive, EOMI, Mucous Membr. Moist/[place] Neck: Reports: Supple, Trachea Midline, No JVD Lungs: Reports: Clear to Auscultation, Normal Respiratory Effort Cardiovascular: Reports: Regular Rate, Regular Rhythm GI/Abdominal Exam: Normal Bowel Sounds, Soft, Non-Tender, No Organomegaly, No Distention, No Abnormal Bruit, No Mass, Pelvis Stable (Female) Exam: Deferred Rectal (Female) Exam: Deferred Back Exam: Reports: Normal Inspection, Decreased Range of Motion Extremities: Normal Inspection, Normal Range of Motion, Non-Tender, No Pedal Edema, Normal Capillary Refill Skin: Reports: Warm, Dry, Intact Wound/Incisions: Reports: Healing Well Neurological: Reports: No New Focal Deficit Psy/Mental Status: Reports: Alert, Normal Affect, Normal Mood *Q Meaningful Use (DIS) - VTE *Q VTE Criteria *Q: - Stroke *Q Stroke Criteria *Q: - AMI *Q AMI Criteria *Q:
== END 2017-09-24 15:30 | DRG 884 ==
LOC: JD.ED 20:13 → JD.MS 23:54 → OBSVTOIN 09-20 08:55
PROVIDERS: ADMIT Internal Medicine; ATTEND Internal Medicine
DX: F02.81 Dementia in other diseases classified elsewhere, unspecified severity, with behavioral disturbance (principal); F32.3 Major depressive disorder, single episode, severe with psychotic features; R44.3 Hallucinations, unspecified; G30.1 Alzheimer's disease with late onset; F22 Delusional disorders; E83.42 Hypomagnesemia; I12.9 Hypertensive chronic kidney disease with stage 1 through stage 4 chronic kidney disease, or unspecified chronic kidney disease; N18.9 Chronic kidney disease, unspecified; Z87.891 Personal history of nicotine dependence; Z91.81 History of falling; K21.9 Gastro-esophageal reflux disease without esophagitis; E03.9 Hypothyroidism, unspecified; J44.9 Chronic obstructive pulmonary disease, unspecified; R26.81 Unsteadiness on feet; E87.5 Hyperkalemia; H91.90 Unspecified hearing loss, unspecified ear; H54.7 Unspecified visual loss; Z79.899 Other long term (current) drug therapy
CPT/HCPCS: 36415 ×2; 70450; 71045; 80048; 80053; 81001; 83735; 84439; 84443; 85025 ×2; 86140; 93005; 96125; 99285; A9270 ×4; J0360; J2920; J7040; 80306; 94640; 94760; 94761; 96360; 97110-GP; 97116-GP; 97162-GP; 97165-GO; J3475